=== PATIENT | female | born 1940 | race Caucasian/White ===

== ENCOUNTER → 2024-05-31 14:38 | Outpatient (REF) | payer OTHER, SELFPAY | LOC: MRI 3T 14:38 | PROVIDERS: ATTENDING PHYSICIAN Internal Medicine | DX: M54.59 Other low back pain (principal); M47.817 Spondylosis without myelopathy or radiculopathy, lumbosacral region; M54.16 Radiculopathy, lumbar region | CPT/HCPCS: 72148 ==

== ENCOUNTER → 2025-01-11 10:18 | Outpatient (REF) | payer OTHER, SELFPAY | LOC: RAD 10:18 | PROVIDERS: ATTENDING PHYSICIAN Nurse Practitioner Adult Health; FAMILY PHYSICIAN Family Medicine; REFERRING PHYSICIAN Internal Medicine | DX: Z12.31 Encounter for screening mammogram for malignant neoplasm of breast (principal); M85.831 Other specified disorders of bone density and structure, right forearm; E55.9 Vitamin D deficiency, unspecified | CPT/HCPCS: 77063; 77067; 77080 ==

== ENCOUNTER 2025-03-09 06:02 | Day surgery (SDC) | payer OTHER, SELFPAY ==
--- NOTE | 2025-02-28 09:46 | VNURNOTE ---
Patient is scheduled for an elective L TKA on 03/09/25- she is a same day patient with Dr Alegria. Spoke with patient prior to surgery. Introduced role of [facility] VN Liaison. Patient reports that she lives with her spouse in a MULTI story home.
There is 1 step to enter and 16 steps to the second floor.
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 She will obtain a raised toilet seat. She has a rolling walker.
Discussed [facility] joint protocol and post surgical plans.
Reviewed that she will have VN services initially and will then start outpatient PT.
Patient selects [facility] VN for her home care needs and will go to the [facility] at for outpatient PT. Date TBD. Advised patient to schedule for 03/14. She has an intro meeting at outpt today.
Patient is in agreement with plan and states that her spouse will be home with her. Advised to bring RW with her day of surgery. Referral placed in [facility].
Plan: [facility] VN per [facility] joint protocol on 03/09 then outpt PT TBD
[2025-02-28 13:48] LABS: Hematocrit 45.9 % (37.0-47.0); Hemoglobin 15.7 g/dL (12.0-16.0); Mean Corp Hgb Conc. 34.2 g/dL (33.0-37.0); Mean Corpuscular Volume 90.5 fL (81.0-99.0); Mean Platelet Volume 8.9 fL (7.4-10.4); Platelet Count 232 10^3/uL (130-400); Red Blood Cell Count 5.07 10^6/uL (4.20-5.40); Red Cell Dist. Width 13.6 % (11.5-14.5); White Blood Cell Count 8.7 10^3/uL (4.8-10.8)
[2025-02-28 14:08] LABS: Glycohemoglobin (HgbA1c) 5.6 % (4.0-5.6)
[2025-02-28 14:10] LABS: ALT (SGPT) 15 U/L (0-35); AST (SGOT) 21 U/L (14-36); Albumin 3.9 g/dl (3.5-5.0); Alkaline Phosphatase 77 U/L (38-126); Blood Urea Nitrogen 24 mg/dl (7-17); Calcium 10.1 mg/dl (8.4-10.2); Carbon Dioxide 27 mmol/L (22-30); Chloride 105 mmol/L (98-107); Glucose 150 mg/dl (70-99); Potassium 4.4 mmol/L (3.5-5.1); Sodium 140 mmol/L (135-145); Total Protein 6.6 g/dl (6.3-8.2); eGFR > 60.00
[2025-02-28 14:16] VITALS: BMI 33.5
[2025-02-28 14:23] VITALS: BMI 33.5
--- NOTE | 2025-03-03 12:45 | CM ---
CM reviewed medical records. CM spoke with patient via phone. Patient confirmed demographics. Patient lives independently with . Patient has had home care in the past with her previous THR surgeries. Patient does not have a history of SNF
placement.Patient stated that she has a walker, and plans to get a shower chair. She was updated by her son that he made arrangements for a stair lift to be installed today. Patient is active with her PCP and will use [facility] for medication services.
Patient confirmed she has an appointment with [facility] Outpatient PT on 03/16.
CM provided patient with contact information and will remain available as needed.
--- NOTE | 2025-03-07 11:06 | CM ---
Patient left message for CM to return call. CM left message. CM will remain available as needed.
[2025-03-09] VITALS (18 sets, daily range): BP systolic 89–141; BP diastolic 33–88; PULSE 86; O2SAT 96
[2025-03-09] MEDS: CELEBREX 200 MG PO (06:28)
[2025-03-09] MEDS: TYLENOL 650 MG PO (06:29)
[2025-03-09] MEDS: BACTROBAN NASAL 1 GRAM NASAL (06:29)
[2025-03-09] MEDS: NORMOSOL-R/PLASMALYTE-A 1000 IV (06:32)
--- NOTE | 2025-03-09 08:19 | W.DS.TRANS ---
DC Summary - [employer]
-
Discharge Instructions:
Sleep Apnea Risk Low
Discharge Diagnosis/Procedures L TKA 03/09/25
Diet As tolerated
Activity With Walker
Additional Activity Adequate hydration, minimize Oxy and wear TEDs
stockings to prevent low blood pressure/
dizziness
Driving Restrictions No driving
Bathing Restrictions OK to Shower
Other Services PT
Instructions:
Stand-Alone Forms: [facility] Total Hip and Knee D/C
Changes to Home Medications: Yes
Discharge Medications:
DC Medications w/original date entered in [employer]
levothyroxine 50 mcg tablet 50 mcg PO DAILY 06/23/15
biotin 10,000 mcg capsule 10,000 mcg PO DAILY 02/25/25
cholecalciferol (vitamin D3) 50 mcg (2,000 unit) capsule (Vitamin D3) 50 mcg PO DAILY 02/25/25
magnesium 250 mg tablet 250 mg PO DAILY 02/25/25
trazodone 50 mg tablet 75 mg PO HS 02/25/25
celecoxib 200 mg capsule 200 mg PO DAILY Anti-inflammatory #14 caps 02/28/25
dexamethasone 4 mg tablet 4 mg PO BID inflammation #6 tabs 02/28/25
famotidine 20 mg tablet 20 mg PO HS GI prophylaxis #30 tabs 02/28/25
gabapentin 300 mg capsule 300 mg PO HS sleep/pain #10 caps 02/28/25
mupirocin 2 % topical ointment 1 applic topical BID infection prevention #1 tube 02/28/25
ondansetron 4 mg disintegrating tablet 4 mg PO Q6H PRN n/v #20 tabs 02/28/25
oxycodone 5 mg tablet 5 mg PO Q6H PRN 1 tab moderate pain, 2 tabs severe pain #30 tabs 02/28/25
Saccharomyces boulardii 250 mg capsule (Florastor) 250 mg PO BID #1 cap 03/09/25
acetaminophen 325 mg tablet (Tylenol) 650 mg (2 x 325 mg) PO QID #1 tab 03/09/25
aspirin 325 mg tablet 325 mg PO DAILY blood clot prevention #1 tab 03/09/25
cefadroxil 500 mg capsule 500 mg PO BID infection prevention #14 caps 03/09/25
docusate sodium 100 mg capsule (Colace) 100 mg PO BID stool softner #1 cap 03/09/25
magnesium hydroxide 400 mg/5 mL oral suspension (Milk of Magnesia) 30 ml PO HS PRN constipation #1 mL 03/09/25
sennosides 8.6 mg tablet (Senokot) 17.2 mg (2 x 8.6 mg) PO BID laxative #2 tabs 03/09/25
Home Medication Changes
celecoxib 200 mg capsule 200 mg PO DAILY Anti-inflammatory #14 caps 02/28/25
dexamethasone 4 mg tablet 4 mg PO BID inflammation #6 tabs 02/28/25
famotidine 20 mg tablet 20 mg PO HS GI prophylaxis #30 tabs 02/28/25
gabapentin 300 mg capsule 300 mg PO HS sleep/pain #10 caps 02/28/25
mupirocin 2 % topical ointment 1 applic topical BID infection prevention #1 tube 02/28/25
ondansetron 4 mg disintegrating tablet 4 mg PO Q6H PRN n/v #20 tabs 02/28/25
oxycodone 5 mg tablet 5 mg PO Q6H PRN 1 tab moderate pain, 2 tabs severe pain #30 tabs 02/28/25
Saccharomyces boulardii 250 mg capsule (Florastor) 250 mg PO BID #1 cap 03/09/25
acetaminophen 325 mg tablet (Tylenol) 650 mg (2 x 325 mg) PO QID #1 tab 03/09/25
aspirin 325 mg tablet 325 mg PO DAILY blood clot prevention #1 tab 03/09/25
cefadroxil 500 mg capsule 500 mg PO BID infection prevention #14 caps 03/09/25
docusate sodium 100 mg capsule (Colace) 100 mg PO BID stool softner #1 cap 03/09/25
magnesium hydroxide 400 mg/5 mL oral suspension (Milk of Magnesia) 30 ml PO HS PRN constipation #1 mL 03/09/25
sennosides 8.6 mg tablet (Senokot) 17.2 mg (2 x 8.6 mg) PO BID laxative #2 tabs 03/09/25
Pending Results: No
[2025-03-09] MEDS: ANCEF 5 IV (10:30)
--- NOTE | 2025-03-09 10:47 | PTCARENOTE ---
at 1030 patient tried self cathing and she could not do it. Patient self caths at home. Patient straight cathed at 1030 by RN for 300 ml of [place] urine. / No issues with catheterization. Will monitor patient.
--- NOTE | 2025-03-09 12:35 | SUR.OPER ---
Patients sat were approximately 89% on RA while here in [facility]. Patient told to take deep breaths multiple times and then sat would increase. Patient ready for discharge and Dr. Farley notified to make him aware of low sat. Dr. Farley over to see
patient and orders to discharge patient give her an Incentive Spirometer. Dr. Farley notified that patients BP and HR were all normal and that patient voided twice via patient straight catheterizing herself. Patient had minor dizziness when first
here in [facility] but no dizziness at the present time. Will monitor patient.
--- NOTE | 2025-03-09 13:27 | PTCARENOTE ---
Pox dropped to 78% post PT and then came up within a minute to 96% Dr. Farley notified and per MD patient ok for discharge. Will monitor patient.
== END 2025-03-09 13:41 | disposition home or self-care (01) ==
LOC: SDS 06:02
PROVIDERS: ATTENDING PHYSICIAN Orthopaedic Surgery; FAMILY PHYSICIAN Family Medicine; OTHER PHYSICIAN Physician Assistant Medical
DX: M17.12 Unilateral primary osteoarthritis, left knee (principal)
CPT/HCPCS: 27447; 36415; 73560; 80053; 83036; 85027; 87070; 97116; 97162; C1713; C1776

== ENCOUNTER 2025-04-07 12:50 | Outpatient (RCR) | payer OTHER, SELFPAY | END 2025-04-07 23:59 | disposition home or self-care (01) | LOC: RPT 12:50 | PROVIDERS: ATTENDING PHYSICIAN Orthopaedic Surgery | DX: Z47.1 Aftercare following joint replacement surgery (principal); Z73.6 Limitation of activities due to disability; R26.2 Difficulty in walking, not elsewhere classified; M25.562 Pain in left knee; R26.89 Other abnormalities of gait and mobility; M62.81 Muscle weakness (generalized); Z96.652 Presence of left artificial knee joint | CPT/HCPCS: 97010; 97110; 97116; 97162; 97530 ==

== ENCOUNTER 2025-04-11 09:53 | Outpatient (RCR) | payer OTHER, SELFPAY | END 2025-04-11 23:59 | disposition home or self-care (01) | LOC: RPT 09:53 | PROVIDERS: ATTENDING PHYSICIAN Orthopaedic Surgery | DX: Z47.1 Aftercare following joint replacement surgery (principal); Z73.6 Limitation of activities due to disability; R26.2 Difficulty in walking, not elsewhere classified; M25.562 Pain in left knee; R26.89 Other abnormalities of gait and mobility; M62.81 Muscle weakness (generalized); Z96.652 Presence of left artificial knee joint | CPT/HCPCS: 97110; 97530 ==